=== PATIENT | female | born 1970 | race African-American/Black ===

== ENCOUNTER 2016-10-08 18:26 | Emergency (ER) | payer MEDICAID, MEDICARE, OTHER ==
[~2016-10-08] VITALS: Ht 165.1 cm; Wt 90.0 kg
[~2016-10-08 18:26] MED LIST: EFEX1; QUET100T; SERT20OR; trazadone
[2016-10-08] MEDS ORDERED: KETOROLAC 60MG/2ML VIAL IM ONE (20:30)
[2016-10-08 23:49] VITALS: BP 136/80
== END 2016-10-08 23:50 | disposition home or self-care (01) ==
LOC: ER 20:22
DX: S82.002A Unspecified fracture of left patella, initial encounter for closed fracture (principal); S82.001A Unspecified fracture of right patella, initial encounter for closed fracture; M25.511 Pain in right shoulder; I10 Essential (primary) hypertension; J45.909 Unspecified asthma, uncomplicated; Z88.0 Allergy status to penicillin; V89.2XXA Person injured in unspecified motor-vehicle accident, traffic, initial encounter; Y93.89 Activity, other specified; Y92.89 Other specified places as the place of occurrence of the external cause; Y99.8 Other external cause status
CPT/HCPCS: 73030; 73562; 96372; 99284; J1885; L1830